=== PATIENT | female | born 1980 | race Two or more races ===

== ENCOUNTER 2017-05-19 08:23 | Emergency (ER) | payer MEDICAID ==
[~2017-05-19] VITALS: Ht 154.9 cm; Wt 115.2 kg
[2017-05-19 09:05] LABS: Basophils # (auto) 0.1 uL; Basophils % (auto) 0.6 % (0.0-2.0); CONDITION Y; DEFINITIVE SEE PRINTOUT; Eosinophils # (auto) 0.2 uL; Eosinophils % (auto) 2.2 % (0.0-7.0); Hematocrit 28.8 % (36.0-46.0); Hemoglobin 9.1 g/dL (12.2-16.2); Lymphocytes # (auto) 2.5 uL; Lymphocytes % (auto) 25.3 % (10.0-50.0); Mean Corpuscular Hgb Conc. 31.7 g/dL (32.0-36.0); Mean Corpuscular Volume 56.7 fL (80.0-100.0); Mean Platelet Volume 7.8 fL (7.4-10.4); Monocytes # (auto) 0.7 uL; Monocytes % (auto) 6.7 % (0.0-12.0); Neutrophils # (auto) 6.3 uL; Neutrophils % (auto) 65.2 % (37.0-80.0); Platelet Count (auto) 491 10^3/uL (140-450); Red Cell Distribution Width 18.5 % (11.6-16.0); White Blood Cell 9.7 10^3/uL (4.4-10.8)
[2017-05-19 09:26] LABS: Albumin 3.9 g/dL (3.4-5.0); BUN/Creatinine Ratio 18.2; Calcium 8.9 mg/dL (8.5-10.1); Potassium 3.9 mmol/L (3.5-5.1)
[2017-05-19] MEDS ORDERED: SODIUM CHLORIDE 0.9% 1,000 ML IV ONE (09:28)
[2017-05-19 09:29] LABS: INR 0.96 (0.9-1.15); Partial Thromboplastin Time 25.1 sec (22.64-33.71); Prothrombin Time 10.5 sec (9.37-12.3)
[2017-05-19 09:30] LABS: Bilirubin, Total 0.5 mg/dL (0.2-1.0); Total Protein 8.5 g/dL (6.4-8.2)
[2017-05-19 11:32] VITALS: BP 120/80
== END 2017-05-19 11:38 | disposition home or self-care (01) ==
LOC: ER 08:23
DX: K64.9 Unspecified hemorrhoids (principal); I10 Essential (primary) hypertension; K92.1 Melena
CPT/HCPCS: 36415; 74176; 80053; 85025; 85610; 85730; 96360; 99285; J7030

== ENCOUNTER 2018-02-26 10:51 | Emergency (ER) | payer MEDICAID ==
[~2018-02-26] VITALS: Ht 154.9 cm; Wt 106.1 kg
[2018-02-26 11:00] VITALS: BP 149/78
[2018-02-26] MEDS ORDERED: KETOROLAC TROMETH 60MG/2ML VIAL IM ONE (11:30)
[2018-02-26 11:35] LABS: Basophils # (auto) 0.1 uL; Eosinophils # (auto) 0.2 uL; Hemoglobin 9.3 g/dL (12.2-16.2); Monocytes # (auto) 0.7 uL; Monocytes % (auto) 6.8 % (0.0-12.0); Nucleated Red Blood Cells % 0.1 %; Red Cell Distribution Width 17.3 % (11.8-14.3)
[2018-02-26 11:37] LABS: Basophils % (auto) 1.1 % (0.0-2.0); Eosinophils % (auto) 1.9 % (0.0-7.0); Hematocrit 30.5 % (36.0-46.0); Lymphocytes # (auto) 2.5 uL; Lymphocytes % (auto) 23.2 % (10.0-50.0); Mean Corpuscular Hemoglobin 17.8 pg (28.0-32.0); Mean Corpuscular Hgb Conc. 30.6 g/dL (32.0-36.0); Mean Corpuscular Volume 58.2 fL (80.0-100.0); Neutrophils # (auto) 7.3 uL; Platelet Count (auto) 475 10^3/uL (140-450); Red Blood Cells 5.24 10^6/uL (4.0-5.20); White Blood Cell 10.9 10^3/uL (4.4-10.8)
[2018-02-26 11:57] LABS: Albumin 3.7 g/dL (3.4-5.0); BUN/Creatinine Ratio 13.6; Bilirubin, Total 0.6 mg/dL (0.2-1.0); Calcium 8.3 mg/dL (8.5-10.1); Potassium 3.9 mmol/L (3.5-5.1); Total Protein 8.5 g/dL (6.4-8.2)
== END 2018-02-26 12:28 | disposition home or self-care (01) ==
LOC: ER 10:51
DX: N39.0 Urinary tract infection, site not specified (principal); K76.0 Fatty (change of) liver, not elsewhere classified; I10 Essential (primary) hypertension
CPT/HCPCS: 36415; 76705; 80053; 81002; 83690; 85025; 96372; 99285; J1885

== ENCOUNTER 2018-11-03 09:40 | Emergency (ER) | payer MEDICAID ==
[2018-11-03 10:08] VITALS: BP 179/73
[2018-11-03] MEDS ORDERED: KETOROLAC TROMETH 60MG/2ML VIAL IM ONE (10:30)
== END 2018-11-03 11:00 | disposition home or self-care (01) ==
LOC: ER 09:40
DX: S39.012A Strain of muscle, fascia and tendon of lower back, initial encounter (principal); R05 Cough; I10 Essential (primary) hypertension; Z90.49 Acquired absence of other specified parts of digestive tract; X58.XXXA Exposure to other specified factors, initial encounter; Y93.89 Activity, other specified; Y99.8 Other external cause status; Y92.89 Other specified places as the place of occurrence of the external cause
CPT/HCPCS: 96372; 99283; J1885

== ENCOUNTER 2019-03-21 15:22 | Emergency (ER) | payer MEDICAID ==
[~2019-03-21] VITALS: Ht 154.9 cm; Wt 95.3 kg
[2019-03-21 18:07] LABS: Basophils # (auto) 0.1 uL; Hemoglobin 9.4 g/dL (12.2-16.2); Monocytes # (auto) 0.7 uL
[2019-03-21 18:08] LABS: Eosinophils # (auto) 0.2 uL; Eosinophils % (auto) 1.9 % (0.0-7.0); Hematocrit 30.4 % (36.0-46.0); Lymphocytes % (auto) 23.5 % (10.0-50.0); Mean Corpuscular Hemoglobin 18.5 pg (28.0-32.0); Mean Corpuscular Hgb Conc. 30.8 g/dL (32.0-36.0); Mean Corpuscular Volume 59.9 fL (80.0-100.0); Monocytes % (auto) 5.8 % (0.0-12.0); Neutrophils # (auto) 8.6 uL; Neutrophils % (auto) 67.8 % (37.0-80.0); Nucleated Red Blood Cells % 0.2 %; Platelet Count (auto) 524 10^3/uL (140-450); Red Blood Cells 5.07 10^6/uL (4.0-5.20); Red Cell Distribution Width 16.3 % (11.8-14.3); White Blood Cell 12.6 10^3/uL (4.4-10.8)
[2019-03-21 18:18] LABS: Chloride 104 mmol/L (98-107); Potassium 3.5 mmol/L (3.5-5.1); Sodium 137 mmol/L (136-145)
[2019-03-21 18:21] LABS: Anion Gap 10 (5-15); Blood Urea Nitrogen 11 mg/dL (7-18); Calcium 8.8 mg/dL (8.5-10.1); Carbon Dioxide 23 mmol/L (21-32); Glucose 80 mg/dL (74-106)
[2019-03-21 18:24] LABS: BUN/Creatinine Ratio 15.9; GFR African American 123 mL/min; GFR Non-African American 102 mL/min
[2019-03-21 18:28] LABS: Blood Alcohol < 3.0 mg/dL (0-5)
[2019-03-21 22:22] LABS: Urine Pregnacy Test Negative (Negative)
[2019-03-21 22:35] LABS: Alcohol, Urine < 3.0 mg/dL (0-5); Amphetamine Screen, Urine NEGATIVE (NEGATIVE); Barbiturate Scree,Urine NEGATIVE (NEGATIVE); Benzodiazephine Screen, Urine NEGATIVE (NEGATIVE); Cannabinoid Screen, Urine NEGATIVE (NEGATIVE); Cocaine Screen, Urine NEGATIVE (NEGATIVE); Opiate Scree,Urine NEGATIVE (NEGATIVE); Phencyclidine Screen, Urine NEGATIVE (NEGATIVE)
[2019-03-22 16:05] VITALS: BP 138/98
== END 2019-03-22 16:25 | disposition short-term general hospital (02) ==
LOC: EDBD 15:22 → ER 15:43
DX: R45.851 Suicidal ideations (principal); R51 Headache; F32.9 Major depressive disorder, single episode, unspecified; E78.5 Hyperlipidemia, unspecified; I10 Essential (primary) hypertension; M19.90 Unspecified osteoarthritis, unspecified site
CPT/HCPCS: 36415; 80048; 80307; 80320; 81025; 85025

== ENCOUNTER 2019-09-18 10:09 | Emergency (ER) | payer MEDICAID ==
[~2019-09-18] VITALS: Ht 154.9 cm; Wt 97.5 kg
[2019-09-18] MEDS ORDERED: LORazepam 2MG/ML-1ML VIAL IV ONE (10:30)
[2019-09-18] MEDS ORDERED: ASPirin 81 mg TAB PO ONE (10:30)
[2019-09-18 10:55] LABS: Basophils # (auto) 0.1 uL; Eosinophils # (auto) 0.4 uL; Hemoglobin 8.5 g/dL (12.2-16.2); Monocytes # (auto) 0.6 uL; Monocytes % (auto) 5.9 % (0.0-12.0); Nucleated Red Blood Cells % 0.1 %; Platelet Count (auto) 413 10^3/uL (140-450)
[2019-09-18 10:57] LABS: Basophils % (auto) 0.8 % (0.0-2.0); Eosinophils % (auto) 3.9 % (0.0-7.0); Hematocrit 26.3 % (36.0-46.0); Lymphocytes # (auto) 1.9 uL; Lymphocytes % (auto) 17.7 % (10.0-50.0); Mean Corpuscular Hemoglobin 18.7 pg (28.0-32.0); Mean Corpuscular Hgb Conc. 32.3 g/dL (32.0-36.0); Neutrophils # (auto) 7.8 uL; Neutrophils % (auto) 71.7 % (37.0-80.0); Red Blood Cells 4.53 10^6/uL (4.0-5.20); Red Cell Distribution Width 16.7 % (11.8-14.3); White Blood Cell 10.9 10^3/uL (4.4-10.8)
[2019-09-18 11:15] LABS: Alanine Aminotransferase 16 U/L (13-56); Albumin 3.1 g/dL (3.4-5.0); Anion Gap 9 (5-15); Aspartate Aminotransferase 14 U/L (15-37); BUN/Creatinine Ratio 11.9; Blood Urea Nitrogen 7 mg/dL (7-18); Calcium 8.1 mg/dL (8.5-10.1); Carbon Dioxide 24 mmol/L (21-32); Chloride 107 mmol/L (98-107); GFR African American 147 mL/min; GFR Non-African American 121 mL/min; Glucose 82 mg/dL (74-106); Potassium 3.7 mmol/L (3.5-5.1); Sodium 140 mmol/L (136-145); Total Protein 6.9 g/dL (6.4-8.2)
[2019-09-18 11:19] LABS: Alkaline Phosphatase 72 U/L (45-117); Bilirubin, Total 0.5 mg/dL (0.2-1.0)
[2019-09-18 12:37] VITALS: BP 122/74
[2019-09-18 12:55] LABS: Urine Bacteria MOD /hpf (None Seen); Urine Blood TRACE /uL (Negative); Urine Mucus FEW (None Seen); Urine Specific Gravity 1.019 (1.001-1.035); Urine WBC 62 /hpf (0 - 5); Urine WBC Clumps PRESENT /hpf (None Seen)
[2019-09-18] MEDS ORDERED: cefTRIAXone W LIDOCAINE 1 GM IM IM ONE (13:45)
[2019-09-18] MEDS ORDERED: cefTRIAXone 1GM/50ML D5W 50 ML IV ONE ×2 (13:48→14:00)
== END 2019-09-18 14:09 | disposition home or self-care (01) ==
LOC: EDUNIT# 10:09 → EDBD 10:09 → ER 10:09
DX: R07.89 Other chest pain (principal); N39.0 Urinary tract infection, site not specified; M19.90 Unspecified osteoarthritis, unspecified site; E78.5 Hyperlipidemia, unspecified; I10 Essential (primary) hypertension; Z90.49 Acquired absence of other specified parts of digestive tract
CPT/HCPCS: 36415; 80053; 81001; 84484; 85025; 93005; 96374; 96375; 99284; J0696; J2060

== ENCOUNTER 2019-12-30 10:53 | Emergency (ER) | payer MEDICAID ==
[~2019-12-30] VITALS: Ht 154.9 cm; Wt 95.3 kg
[2019-12-30 11:06] VITALS: BP 123/66
[2019-12-30] MEDS ORDERED: SODIUM CHLORIDE 0.9% 1,000 ML IVB ONE (11:12)
[2019-12-30] MEDS ORDERED: MORPHINE SULFATE 4 MG/ML SYR/VIAL IV ONE (11:15)
[2019-12-30] MEDS ORDERED: ONDANSETRON HCL 4 MG/2 ML VIAL IV ONE (11:15)
[2019-12-30 11:53] LABS: Basophils # (auto) 0.1 uL; Eosinophils # (auto) 0.2 uL; Hemoglobin 9.5 g/dL (12.2-16.2); Lymphocytes # (auto) 2.3 uL; Monocytes # (auto) 0.7 uL; Monocytes % (auto) 5.6 % (0.0-12.0); Neutrophils # (auto) 8.8 uL; Nucleated Red Blood Cells % 0.1 %; White Blood Cell 12.1 10^3/uL (4.4-10.8)
[2019-12-30 11:55] LABS: Basophils % (auto) 0.9 % (0.0-2.0); Eosinophils % (auto) 1.9 % (0.0-7.0); Hematocrit 30.7 % (36.0-46.0); Lymphocytes % (auto) 19.1 % (10.0-50.0); Mean Corpuscular Hemoglobin 18.2 pg (28.0-32.0); Mean Corpuscular Hgb Conc. 30.8 g/dL (32.0-36.0); Mean Corpuscular Volume 59.1 fL (80.0-100.0); Neutrophils % (auto) 72.5 % (37.0-80.0); Platelet Count (auto) 551 10^3/uL (140-450); Red Blood Cells 5.19 10^6/uL (4.0-5.20); Red Cell Distribution Width 16.3 % (11.8-14.3)
[2019-12-30 12:07] LABS: Albumin 3.9 g/dL (3.4-5.0); Calcium 9.3 mg/dL (8.5-10.1)
[2019-12-30 12:11] LABS: BUN/Creatinine Ratio 16.9; Bilirubin, Total 0.7 mg/dL (0.2-1.0); Total Protein 8.4 g/dL (6.4-8.2)
== END 2019-12-30 15:22 | disposition home or self-care (01) ==
LOC: EDBD 10:53 → ER 10:53
DX: R10.13 Epigastric pain (principal); E78.5 Hyperlipidemia, unspecified; I10 Essential (primary) hypertension; R07.89 Other chest pain
CPT/HCPCS: 36415; 74176; 76705; 80053; 83690; 85025; 96374; 96375; 99284; J2270; J2405; J7030

== ENCOUNTER 2024-02-03 08:47 | Inpatient (IN) | payer MEDICAID ==
[~2024-02-03] VITALS: Ht 154.9 cm; Wt 109.6 kg
[2024-02-03 08:59] LABS: Basophils # (auto) 0.2 10 ^3/uL (0-0.2); Basophils % (auto) 1.5 % (0.0-2.0); Eosinophils # (auto) 0.7 10 ^3/uL (0-0.8); Eosinophils % (auto) 4.2 % (0.0-7.0); Hematocrit 31.1 % (36.0-46.0); Hemoglobin 9.5 g/dL (12.2-16.2); Lymphocytes # (auto) 3.2 10 ^3/uL (0.4-5.4); Lymphocytes % (auto) 20.7 % (10.0-50.0); Mean Corpuscular Hemoglobin 16.6 pg (28.0-32.0); Mean Corpuscular Hgb Conc. 30.6 g/dL (32.0-36.0); Mean Corpuscular Volume 54.3 fL (80.0-100.0); Monocytes # (auto) 0.9 10 ^3/uL (0-1.3); Neutrophils # (auto) 10.4 10 ^3/uL (1.6-8.6); Neutrophils % (auto) 67.6 % (37.0-80.0); Nucleated Red Blood Cells % 0.1 %; Red Blood Cells 5.74 10^6/uL (4.0-5.20); Red Cell Distribution Width 17.2 % (11.8-14.3); White Blood Cell 15.4 10^3/uL (4.4-10.8)
[2024-02-03 09:20] LABS: Alanine Aminotransferase 14 U/L (7-40); Albumin 4.1 g/dL (3.2-4.8); Alkaline Phosphatase 116 U/L (46-116); Anion Gap 4 (5-15); Aspartate Aminotransferase 13 U/L (13-40); BUN/Creatinine Ratio 12.8 (10.0-20.0); Bilirubin, Total 0.3 mg/dL (0.2-1.0); Blood Urea Nitrogen 12 mg/dL (9-23); Calcium 9.2 mg/dL (8.5-10.1); Carbon Dioxide 27 mmol/L (20-30); Chloride 107 mmol/L (98-107); Glucose 105 mg/dL (74-106); Potassium 4.2 mmol/L (3.5-5.1); Sodium 138 mmol/L (136-145); Total Protein 7.1 g/dL (5.7-8.2)
[2024-02-03 09:29] LABS: INR 0.97 (0.9-1.15); Partial Thromboplastin Time 27.7 SEC (24.5-34.5); Prothrombin Time 10.2 sec (9.3-11.8)
[2024-02-03] MEDS: ASPirin-EC 325mg tab PO ONE (09:57)
[2024-02-03 10:30] VITALS: PULSE 87; RESP 12; O2SAT 98
[2024-02-03 10:43] LABS: Hypochromia Moderate; Platelet Estimate Increased
[2024-02-03 10:46] LABS: Amphetamine Screen, Urine Pos (NEGATIVE); Barbiturate Scree,Urine Neg (NEGATIVE); Benzodiazephine Screen, Urine Neg (NEGATIVE); Cocaine Screen, Urine Neg (NEGATIVE); Opiate Scree,Urine Neg (NEGATIVE)
[2024-02-03 10:47] LABS: Cannabinoid Screen, Urine Neg (NEGATIVE); Phencyclidine Screen, Urine Neg (NEGATIVE)
[2024-02-03 11:49] LABS: % Iron Saturation 7.3 % (15-50)
[2024-02-03 12:14] LABS: Urine Bacteria NONE SEEN /hpf (None Seen); Urine Blood Negative /uL (Negative); Urine Clarity Clear (Clear); Urine Color Colorless (Yellow); Urine Protein, UAD Negative (Negative); Urine Specific Gravity 1.016 (1.001-1.035); Urine Urobilinogen Normal (Negative); Urine WBC 2 /hpf (0 - 5)
[2024-02-03 12:16] LABS: Folate (Folic Acid) 12.36 ng/mL (>5.38)
[2024-02-03 12:17] LABS: Erythrocyte Sedimentation Rate 24 mm/hr (0-20); Ferritin 13.7 ng/mL (10-291)
[2024-02-03 19:55] VITALS: PULSE 95; RESP 18; O2SAT 95
[2024-02-03] MEDS: MORPHINE SULFATE 4 MG/ML SYR/VIAL IV PRN (20:36)
[2024-02-03] MEDS: ENOXAPARIN SOD 80 MG/0.8ML SYRINGE SC SCH (22:29)
[2024-02-03] MEDS: ATORVASTATIN 20 MG TAB PO SCH (22:30)
[2024-02-03] MEDS: METOPROLOL TARTRATE 25 MG TAB PO SCH (22:30)
[2024-02-04] VITALS (9 sets, daily range): BP systolic 115–146; BP diastolic 46–83; PULSE 70–87; RESP 16–20; TEMP 97.7–98.4; O2SAT 90–99
[2024-02-04] MEDS: NITROGLYCERIN 0.4 MG SL TAB SL PRN (00:41)
[2024-02-04] MEDS ORDERED: TRAZ-181 PO (01:09)
[2024-02-04] MEDS ORDERED: RISP0.5T17 PO (01:09)
[2024-02-04] MEDS ORDERED: CITA20TA9 PO (01:09)
[2024-02-04 05:59] LABS: Eosinophils # (auto) 0.7 10 ^3/uL (0-0.8); Hemoglobin 8.9 g/dL (12.2-16.2); Lymphocytes # (auto) 2.9 10 ^3/uL (0.4-5.4); Red Cell Distribution Width 16.8 % (11.8-14.3)
[2024-02-04 06:03] LABS: Basophils # (auto) 0.2 10 ^3/uL (0-0.2); Basophils % (auto) 1.2 % (0.0-2.0); Eosinophils % (auto) 5.7 % (0.0-7.0); Hematocrit 29.5 % (36.0-46.0); Lymphocytes % (auto) 22.4 % (10.0-50.0); Mean Corpuscular Hemoglobin 16.6 pg (28.0-32.0); Mean Corpuscular Hgb Conc. 30.1 g/dL (32.0-36.0); Mean Corpuscular Volume 55.2 fL (80.0-100.0); Monocytes # (auto) 0.9 10 ^3/uL (0-1.3); Monocytes % (auto) 7.3 % (0.0-12.0); Neutrophils # (auto) 8.2 10 ^3/uL (1.6-8.6); Neutrophils % (auto) 63.4 % (37.0-80.0); Red Blood Cells 5.34 10^6/uL (4.0-5.20)
[2024-02-04] MEDS: INFLUENZA QUAD 2023-2024 0.5 ML SYRG IM ONE (06:12)
[2024-02-04 06:23] LABS: Alanine Aminotransferase 16 U/L (7-40); Albumin 3.7 g/dL (3.2-4.8); Alkaline Phosphatase 102 U/L (46-116); Anion Gap 4 (5-15); Aspartate Aminotransferase 10 U/L (13-40); BUN/Creatinine Ratio 15.9 (10.0-20.0); Blood Urea Nitrogen 14 mg/dL (9-23); Calcium 8.8 mg/dL (8.5-10.1); Carbon Dioxide 26 mmol/L (20-30); Chloride 107 mmol/L (98-107); Cholesterol 144 mg/dL (< 200); Glucose 94 mg/dL (74-106); LDL Cholesterol 87 mg/dL (< 100); Potassium 4.1 mmol/L (3.5-5.1); Sodium 137 mmol/L (136-145); Triglycerides 297 mg/dL (< 150)
[2024-02-04 06:24] LABS: Bilirubin, Total 0.3 mg/dL (0.2-1.0); HDL Cholesterol 32 mg/dL (40-59); Total Protein 6.4 g/dL (5.7-8.2)
[2024-02-04] MEDS: ASPirin 81 mg TAB PO SCH (08:49)
[2024-02-04] MEDS: DOCUSATE SOD 100 MG CAP PO SCH (08:49)
[2024-02-04] MEDS: risperiDONE 1 MG TAB PO ONE (17:10)
[2024-02-04] MEDS: CITALOPRAM HYDROBR 20 MG TAB PO ONE (17:10)
[2024-02-04] MEDS: FERROUS SULFATE 325mg EC TAB PO ONE (17:10)
[2024-02-04] MEDS: traZODone HCL 50 MG TAB PO SCH (22:32)
[2024-02-05] VITALS (9 sets, daily range): BP systolic 109–122; BP diastolic 50–73; PULSE 70–87; RESP 16–20; TEMP 97.2–98.6; O2SAT 90–96
[2024-02-05 05:48] LABS: Basophils # (auto) 0.1 10 ^3/uL (0-0.2); Eosinophils # (auto) 0.6 10 ^3/uL (0-0.8); Lymphocytes # (auto) 2.1 10 ^3/uL (0.4-5.4); Mean Corpuscular Volume 54.5 fL (80.0-100.0); Nucleated Red Blood Cells % 0.1 %
[2024-02-05 05:49] LABS: Basophils % (auto) 1.1 % (0.0-2.0); Eosinophils % (auto) 4.6 % (0.0-7.0); Hematocrit 29.9 % (36.0-46.0); Hemoglobin 9.1 g/dL (12.2-16.2); Lymphocytes % (auto) 16.5 % (10.0-50.0); Mean Corpuscular Hemoglobin 16.7 pg (28.0-32.0); Mean Corpuscular Hgb Conc. 30.6 g/dL (32.0-36.0); Monocytes # (auto) 0.9 10 ^3/uL (0-1.3); Neutrophils # (auto) 8.8 10 ^3/uL (1.6-8.6); Neutrophils % (auto) 70.8 % (37.0-80.0); Red Blood Cells 5.49 10^6/uL (4.0-5.20); White Blood Cell 12.4 10^3/uL (4.4-10.8)
[2024-02-05 06:05] LABS: Alanine Aminotransferase 13 U/L (7-40); Albumin 3.7 g/dL (3.2-4.8); Alkaline Phosphatase 102 U/L (46-116); Anion Gap 5 (5-15); Aspartate Aminotransferase 23 U/L (13-40); BUN/Creatinine Ratio 12.9 (10.0-20.0); Bilirubin, Total 0.5 mg/dL (0.2-1.0); Blood Urea Nitrogen 9 mg/dL (9-23); Calcium 8.8 mg/dL (8.5-10.1); Carbon Dioxide 25 mmol/L (20-30); Chloride 104 mmol/L (98-107); Glucose 93 mg/dL (74-106); Potassium 4.3 mmol/L (3.5-5.1); Sodium 134 mmol/L (136-145); Total Protein 6.8 g/dL (5.7-8.2)
[2024-02-05] MEDS: risperiDONE 1 MG TAB PO SCH (08:26)
[2024-02-05] MEDS: CITALOPRAM HYDROBR 20 MG TAB PO SCH (08:27)
[2024-02-05] MEDS: FERROUS SULFATE 325mg EC TAB PO SCH (08:27)
[2024-02-06] VITALS (7 sets, daily range): BP systolic 102–126; BP diastolic 49–72; PULSE 57–83; RESP 14–19; TEMP 97.9–98.9; O2SAT 90–99
[2024-02-06 06:13] LABS: Anion Gap 7 (5-15); Calcium 8.6 mg/dL (8.7-10.4); Carbon Dioxide 25 mmol/L (20-30); Chloride 105 mmol/L (98-107); Potassium 4.2 mmol/L (3.5-5.1); Sodium 137 mmol/L (136-145)
[2024-02-06 06:14] LABS: Basophils # (auto) 0.1 10 ^3/uL (0-0.2); Basophils % (auto) 0.7 % (0.0-2.0); Eosinophils # (auto) 0.6 10 ^3/uL (0-0.8); Hemoglobin 9.4 g/dL (12.2-16.2); Neutrophils # (auto) 9.3 10 ^3/uL (1.6-8.6); White Blood Cell 13.5 10^3/uL (4.4-10.8)
[2024-02-06 06:16] LABS: Eosinophils % (auto) 4.2 % (0.0-7.0); Hematocrit 31.2 % (36.0-46.0); Lymphocytes # (auto) 2.6 10 ^3/uL (0.4-5.4); Lymphocytes % (auto) 18.8 % (10.0-50.0); Mean Corpuscular Hemoglobin 16.5 pg (28.0-32.0); Mean Corpuscular Hgb Conc. 30.1 g/dL (32.0-36.0); Monocytes % (auto) 7.7 % (0.0-12.0); Neutrophils % (auto) 68.6 % (37.0-80.0); Nucleated Red Blood Cells % 0.1 %; Red Blood Cells 5.68 10^6/uL (4.0-5.20); Red Cell Distribution Width 16.7 % (11.8-14.3)
[2024-02-06 06:19] LABS: BUN/Creatinine Ratio 16.9 (10.0-20.0); Blood Urea Nitrogen 13 mg/dL (9-23); Glucose 93 mg/dL (74-106)
[2024-02-06] MEDS: cefTRIAXone 1GM/50ML D5W 50 ML IV ONE (13:56)
[2024-02-06] MEDS: ACETAMINOPHEN 325 MG TAB PO PRN (14:57)
[2024-02-06 15:53] LABS: Urine Bacteria FEW /hpf (None Seen); Urine Blood Negative /uL (Negative); Urine Clarity CLOUDY (Clear); Urine Color Yellow (Yellow); Urine Mucus FEW (None Seen); Urine Protein, UAD 2+ (Negative); Urine Urobilinogen Normal (Negative); Urine WBC 17 /hpf (0 - 5); Urine WBC Clumps PRESENT /hpf (None Seen); Urine pH 8.5 (5.0-8.0)
[2024-02-07 05:00] VITALS: BP 128/70; PULSE 86; RESP 18; TEMP 98.3; O2SAT 97
[2024-02-07 05:45] LABS: Basophils # (auto) 0.1 10 ^3/uL (0-0.2); Eosinophils # (auto) 0.5 10 ^3/uL (0-0.8); Mean Corpuscular Hemoglobin 16.6 pg (28.0-32.0); Nucleated Red Blood Cells % 0.1 %
[2024-02-07 05:49] LABS: Basophils % (auto) 0.7 % (0.0-2.0); Eosinophils % (auto) 3.3 % (0.0-7.0); Hematocrit 31.2 % (36.0-46.0); Hemoglobin 9.4 g/dL (12.2-16.2); Lymphocytes # (auto) 2.5 10 ^3/uL (0.4-5.4); Mean Corpuscular Hgb Conc. 30.2 g/dL (32.0-36.0); Monocytes % (auto) 6.9 % (0.0-12.0); Neutrophils # (auto) 10.6 10 ^3/uL (1.6-8.6); Neutrophils % (auto) 72.1 % (37.0-80.0); Red Blood Cells 5.68 10^6/uL (4.0-5.20); Red Cell Distribution Width 16.5 % (11.8-14.3); White Blood Cell 14.7 10^3/uL (4.4-10.8)
[2024-02-07 06:06] LABS: Alanine Aminotransferase 17 U/L (7-40); Alkaline Phosphatase 94 U/L (46-116); Anion Gap 8 (5-15); BUN/Creatinine Ratio 15.8 (10.0-20.0); Blood Urea Nitrogen 12 mg/dL (9-23); Calcium 9.4 mg/dL (8.7-10.4); Carbon Dioxide 25 mmol/L (20-30); Chloride 103 mmol/L (98-107); Glucose 89 mg/dL (74-106); Potassium 4.1 mmol/L (3.5-5.1); Sodium 136 mmol/L (136-145)
[2024-02-07 06:07] LABS: Albumin 3.8 g/dL (3.2-4.8); Aspartate Aminotransferase 19 U/L (13-40)
[2024-02-07 06:08] LABS: Bilirubin, Total 0.5 mg/dL (0.2-1.0); Total Protein 7.1 g/dL (5.7-8.2)
[2024-02-07 07:48] VITALS: BP 128/70; PULSE 86; RESP 18; TEMP 98.3; O2SAT 96
[2024-02-07 09:01] VITALS: BP 121/50; PULSE 83; RESP 19; TEMP 98.6; O2SAT 99
[2024-02-07] MEDS: cefTRIAXone 1GM/50ML D5W 50 ML IV SCH (09:18)
== END 2024-02-07 10:16 | disposition left against medical advice (07) | DRG 720 ==
LOC: ER 08:47 → TELE 11:25 → TELE-WESTW 11:25
PROVIDERS: ADMIT Nurse Practitioner Family; ATTEND Internal Medicine
DX: A41.9 Sepsis, unspecified organism (principal); I50.30 Unspecified diastolic (congestive) heart failure; K76.0 Fatty (change of) liver, not elsewhere classified; R16.0 Hepatomegaly, not elsewhere classified; I11.0 Hypertensive heart disease with heart failure; D72.829 Elevated white blood cell count, unspecified; F15.10 Other stimulant abuse, uncomplicated; D50.9 Iron deficiency anemia, unspecified; N39.0 Urinary tract infection, site not specified; D75.839 Thrombocytosis, unspecified; F32.A Depression, unspecified; E78.2 Mixed hyperlipidemia; E66.01 Morbid (severe) obesity due to excess calories; F20.9 Schizophrenia, unspecified; M47.9 Spondylosis, unspecified; G47.00 Insomnia, unspecified; K80.20 Calculus of gallbladder without cholecystitis without obstruction; N20.0 Calculus of kidney; Z53.29 Procedure and treatment not carried out because of patient's decision for other reasons; Z82.49 Family history of ischemic heart disease and other diseases of the circulatory system; Z83.3 Family history of diabetes mellitus; Z90.49 Acquired absence of other specified parts of digestive tract; Z87.891 Personal history of nicotine dependence; Z68.42 Body mass index [BMI] 45.0-49.9, adult; Z82.5 Family history of asthma and other chronic lower respiratory diseases; Z91.51 Personal history of suicidal behavior
CPT/HCPCS: 36415; 71045; 76705; 76775; 80048; 80053; 80061; 80307; 81001; 82270; 82607; 82728; 82746; 83540; 83550; 83615; 83690; 84484; 85025; 85045; 85379; 85610; 85652; 85730; 86141; 86850; 86900; 86901; 87086; 87088; 87186; 90686; 93005; 93306; 96372; 96374; G0378